=== PATIENT | female | born 1995 | race African-American/Black ===

== ENCOUNTER 2016-04-04 14:00 | Emergency (ER) | payer MEDICAID ==
[~2016-04-04] VITALS: Ht 165.1 cm; Wt 59.9 kg
[~2016-04-04 14:00] MED LIST: BENADRYL50 M1 PO
[2016-04-04 15:00] VITALS: BP 138/78
[2016-04-04 17:30] VITALS: BP 121/71
--- NOTE | 2016-04-04 17:30 | NUR ---
Patient discharged with v/s stable. Written and verbal after care instructions given and explained. Patient verbalized understanding. Ambulatory with steady gait. All questions addressed prior to discharge. Advised to follow up with PMD.
== END 2016-04-04 17:30 | disposition home or self-care (01) ==
LOC: MED 14:00
DX: R53.1 Weakness (principal); R20.0 Anesthesia of skin; M79.605 Pain in left leg; M79.604 Pain in right leg

== ENCOUNTER 2017-08-04 17:10 | Emergency (ER) | payer MEDICAID, OTHER ==
[~2017-08-04] VITALS: Ht 165.1 cm; Wt 64.0 kg
[2017-08-04 17:18] VITALS: BP 144/82
--- NOTE | 2017-08-04 17:22 | NUR ---
PT SENT TO ER LOBBY TO WAIT FOR A BED.
--- NOTE | 2017-08-04 19:17 | NUR ---
CAME IN WITH C/O LEFT SIDED HEADACHE, AND SMALL PURPLISH COLOR ON HER RT LEG STARTED TODAY NO PIAN, NO TENDERNESS.
[2017-08-04] MEDS ORDERED: ACETAMINOPHEN 325 MG TAB PO ONE (20:10)
[2017-08-04 22:50] VITALS: BP 133/72
== END 2017-08-04 22:50 | disposition home or self-care (01) ==
LOC: MED 17:10
DX: R51 Headache (principal); M79.661 Pain in right lower leg
CPT/HCPCS: 70450; 81002; 81025; 99284